=== PATIENT | male | born 1975 | race African-American/Black ===

== ENCOUNTER 2017-10-09 00:35 | Emergency (ER) | payer MEDICAID ==
[~2017-10-09] VITALS: Ht 195.6 cm; Wt 100.0 kg
[2017-10-09 00:48] VITALS: BP 128/88
== END 2017-10-09 01:06 | disposition home or self-care (01) ==
LOC: ER 00:35
DX: Z76.0 Encounter for issue of repeat prescription (principal); F25.9 Schizoaffective disorder, unspecified; G43.909 Migraine, unspecified, not intractable, without status migrainosus; F17.200 Nicotine dependence, unspecified, uncomplicated
CPT/HCPCS: 99283